=== PATIENT | male | born 1940 | race Caucasian/White ===

== ENCOUNTER 2017-01-01 10:47 | Observation (INO) | payer MEDICARE, OTHER ==
[~2017-01-01] VITALS: Ht 165.1 cm; Wt 70.0 kg
[2017-01-01] VITALS (9 sets, daily range): BP systolic 111–153; BP diastolic 56–70; PULSE 42–77; RESP 16–20; TEMP 97.4–98.8; O2SAT 95–100
[~2017-01-01 10:47] MED LIST: 1-ME1LIQ PO; ASPI81 PO; CART180C4 PO; CILO50TA PO; CLIN150 PO; CLOP75 PO; CLOP75TA PO; CYCL-36 PO; EZET10 PO; FOSI40TA PO; IBUP-232 PO; LANTUS2P SC; LOVA40TA PO; METO25 PO; NITR0.4S SL; OXYC1SOL5 PO; PROT40TA PO; SIMV20 PO; TOPR25TA2 PO; TRIX0.07 TOP; TYLE500T PO; Z.0.WALKERFRONT
--- NOTE | 2017-01-01 11:07 | PD ---
HPI Chief Complaint: intermittent chest pain Time Seen by Provider: 11:03 Travel History International Travel<30 days: No Contact w/Intl Traveler<30days: No Traveled to known affect area: No History of Present Illness HPI 76-year-old male with history of CAD status post CABG, presents to the ER today sent in by primary care physician because patient had stated to them that he had taken 20 nitroglycerin yesterday. However, on further questioning, patient states he has been having intermittent chest pains which can get up to a 5 out of 10 for which she has been taking nitroglycerin intermittently. Yesterday, he had taken a total of 8 nitroglycerin over the course of the day for the chest pains. He states that he took 2 this morning and he is currently not having chest pains. Chest pains worsen with exertion. He denies any shortness of breath or any other symptoms. 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, celiac artery disease, ) High Cholesterol: No Chest Pain: Yes Congestive Heart Failure: Yes Cerebrovascular Accident: Yes Coronary Artery Disease: Yes Endocrine: No Glaucoma: No Genitourinary: Yes (chronic kidney disease) Hypertension: Yes Immune Disorder: No Kidney Stones: No Musculoskeletal: No Neurologic: No Psychiatric: No Reproductive: No Respiratory: No Myocardial Infarction: Yes Renal Failure: No Past Surgical History Abdominal Surgery: No AICD: No Cardiac Surgery: Yes Coronary Stent: Yes Ear Surgery: No Endocrine Surgery: No Eye Surgery: No Genitourinary Surgery: No Gynecologic Surgery: No Neurologic Surgery: Yes Oral Surgery: No Pacemaker: No Thoracic Surgery: No Other Surgery: Yes Social History Alcohol Use: Yes Tobacco Use: No Substance Use: No Allergies-Medications (Allergen,Severity, Reaction): Coded Allergies: HMG-CoA Reductase Inhibitors (Verified Allergy, Severe, muscle spasms, ) Reported Meds & Prescriptions Reported Meds & Active Scripts Active Walker Front Wheel (Walkerfront) Device 1 Unit Cleocin (Clindamycin HCl) 150 Mg Cap 3 Tab PO Q6 10 Days Capsaicin 0.075 % Cre 0.075 % TOP BID 14 Days Acetaminophen Extra Stren (Acetaminophen) 500 Mg Tab 1,000 Mg PO BID 10 Days Oxycodone/Acetaminophen 5 mg/325 mg 1 Tab Tab 1 Tab PO Q6H PRN 3 Days Flexeril (Cyclobenzaprine HCl) 10 Mg Tab 5 Mg PO TID Motrin (Ibuprofen) 600 Mg Tab 600 Mg PO Q8HR GIVE WITH FOOD Reported Aspirin 81 Mg Tab 81 Mg PO DAILY Plavix (Clopidogrel Bisulfate) 75 Mg Tab 75 Mg PO DAILY Fosinopril Sodium 40 Mg Tab 40 Mg PO DAILY Cartia XT 180 mg (DILTIAZEM XT 180 mg (Cartia)) 180 Mg/24 Hr Cap 360 Mg PO DAILY Toprol Xl (Metoprolol Succinate) 25 Mg Tabcr 25 Mg PO BID Nitrostat (Nitroglycerin) 0.4 Mg Subl 0.4 Mg SL PRN 1 TAB SL EVERY 5 MINS X 3 PRN CHEST PAIN Zocor (Simvastatin) 20 Mg Tab 40 Mg PO DAILY Lantus (Insulin Glargine) 100 Units/Ml Inj 1 Unit SC HS Cilostazol 50 Mg Tab 50 Mg PO BIDAC Clopidogrel (Clopidogrel Bisulfate) 75 Mg Tab 75 Mg PO DAILY Fosinopril Sodium 40 Mg Tab 40 Mg PO DAILY Zetia (Ezetimibe) 10 Mg Tab 10 Mg PO DAILY Lovastatin 40 Mg Tab 80 Mg PO DAILY Amlodipine Besylate 10 mg (Amlodipine Besylate) 10 Mg Tab 1 Tab PO DAILY Metoprolol Tartrate 25 mg (Metoprolol Tartrate) 25 Mg Tab 25 Mg PO BID Protonix (Pantoprazole Sodium) 40 Mg Tab 40 Mg PO DAILY Cartia XT 180 mg (DILTIAZEM XT 180 mg (Cartia)) 180 Mg/24 Hr Cap 180 Mg PO BID Review of Systems Except as stated in HPI: all other systems reviewed are Neg Physical Exam Narrative GENERAL: Elderly male patient who is well-developed, awake, alert, oriented 3. Currently not in acute distress. SKIN: Focused skin assessment warm/dry. HEAD: Atraumatic. Normocephalic. EYES: Pupils equal and round. No scleral icterus. No injection or drainage. ENT: No nasal bleeding or discharge. Mucous membranes pink and moist. NECK: Trachea midline. No JVD. CARDIOVASCULAR: Regular rate and rhythm. No murmur appreciated. Pulses are present and equal bilaterally. RESPIRATORY: No accessory muscle use. Clear to auscultation. Breath sounds equal bilaterally. GASTROINTESTINAL: Abdomen soft, non-tender, nondistended. Hepatic and splenic margins not palpable. MUSCULOSKELETAL: No obvious deformities. No clubbing. No cyanosis. No edema. NEUROLOGICAL: Awake and alert. No obvious cranial nerve deficits. Motor grossly within normal limits. Normal speech. PSYCHIATRIC: Appropriate mood and affect; insight and judgment normal. Data Data Last Documented VS Vital Signs Date Time Temp Pulse Resp B/P Pulse Ox O2 Delivery O2 Flow Rate FiO2 01/01/17 11:07 46 20 98 Room Air 01/01/17 11:07 97.8 01/01/17 10:56 153/70 Orders Electrocardiogram (01/01/17 11:03) Ckmb (Isoenzyme) Profile (01/01/17 11:03) Complete Blood Count With Diff (01/01/17 11:03) Comprehensive Metabolic Panel (01/01/17 11:03) Magnesium (Mg) (01/01/17 11:03) Prothrombin Time / Inr (Pt) (01/01/17 11:03) Act Partial Throm Time (Ptt) (01/01/17 11:03) Troponin I (01/01/17 11:03) Chest, Single Ap (01/01/17 11:03) Ecg Monitoring (01/01/17 11:03) Bilateral Bp Monitoring (01/01/17 11:03) Iv Access Insert/Monitor (01/01/17 11:03) Oximetry (01/01/17 11:03) Oxygen Administration (01/01/17 11:03) Aspirin (Aspirin) (01/01/17 11:15) Sodium Chloride 0.9% Flush (Ns Flush) (01/01/17 11:15) Admit Order (Ed Use Only) (01/01/17 12:17) Labs Laboratory Tests Test 01/01/17 11:10 White Blood Count 10.7 TH/MM3 Red Blood Count 4.22 MIL/MM3 Hemoglobin 13.3 GM/DL Hematocrit 39.2 % Mean Corpuscular Volume 93.0 FL Mean Corpuscular Hemoglobin 31.6 PG Mean Corpuscular Hemoglobin 33.9 % Concent Red Cell Distribution Width 15.2 % Platelet Count 200 TH/MM3 Mean Platelet Volume 9.1 FL Neutrophils (%) (Auto) 55.1 % Lymphocytes (%) (Auto) 19.2 % Monocytes (%) (Auto) 7.8 % Eosinophils (%) (Auto) 17.3 % Basophils (%) (Auto) 0.6 % Neutrophils # (Auto) 5.9 TH/MM3 Lymphocytes # (Auto) 2.1 TH/MM3 Monocytes # (Auto) 0.8 TH/MM3 Eosinophils # (Auto) 1.8 TH/MM3 Basophils # (Auto) 0.1 TH/MM3 CBC Comment AUTO DIFF Differential Total Cells 100 Counted Neutrophils % (Manual) 42 % Band Neutrophils % 4 % Lymphocytes % 21 % Monocytes % 5 % Eosinophils % 26 % Neutrophils # (Manual) 5.1 TH/MM3 Myelocytes 2 % Differential Comment FINAL DIFF MANUAL Platelet Estimate NORMAL Platelet Morphology Comment ENLARGED Prothrombin Time 10.4 SEC Prothromb Time International 0.9 RATIO Ratio Activated Partial 23.6 SEC Thromboplast Time Sodium Level 143 MEQ/L Potassium Level 4.9 MEQ/L Chloride Level 114 MEQ/L Carbon Dioxide Level 22.4 MEQ/L Anion Gap 7 MEQ/L Blood Urea Nitrogen 21 MG/DL Creatinine 1.59 MG/DL Estimat Glomerular Filtration 42 ML/MIN Rate Random Glucose 115 MG/DL Calcium Level 9.0 MG/DL Magnesium Level 2.2 MG/DL Total Bilirubin 0.5 MG/DL Aspartate Amino Transf 8 U/L (AST/SGOT) Alanine Aminotransferase 17 U/L (ALT/SGPT) Alkaline Phosphatase 92 U/L Total Creatine Kinase 63 U/L Troponin I LESS THAN 0.02 NG/ML Total Protein 7.4 GM/DL Albumin 4.2 GM/DL MDM Medical Decision Making Medical Screen Exam Complete: Yes Emergency Medical Condition: Yes Medical Record Reviewed: Yes Interpretation(s) EKG shows sinus bradycardia rate of 50 bpm with no signs of acute ST-T changes. Laboratory Tests Test 01/01/17 11:10 Red Blood Count 4.22 MIL/MM3 (4.50-5.90) Eosinophils (%) (Auto) 17.3 % (0.0-4.0) Eosinophils # (Auto) 1.8 TH/MM3 (0-0.4) Activated Partial 23.6 SEC Thromboplast Time (24.3-30.1) Chloride Level 114 MEQ/L (98-107) Blood Urea Nitrogen 21 MG/DL (7-18) Creatinine 1.59 MG/DL (0.60-1.30) Estimat Glomerular Filtration 42 ML/MIN (>89) Rate Random Glucose 115 MG/DL (74-106) Aspartate Amino Transf 8 U/L (15-37) (AST/SGOT) Troponin I LESS THAN 0.02 NG/ML (0.02-0.05) Last 24 hours Impressions Chest X-Ray 01/01/17 1103 Signed Impressions: Service Date/Time: Sunday, January 01, 2017 11:00 - CONCLUSION: No acute disease. Efraín Metz MD Differential Diagnosis Intermittent chest pains worsening in the past few weeksunstable angina versus dysrhythmias versus ACS Narrative Course Patient was given aspirin in the ER. He is not having active chest pains now. EKG did not show any significant changes but does show some bradycardia. Cardiac enzymes are negative. At this point, considering the recent worsening and chest pain episodes, my plan would be to admit the patient for worsening chest pain, possible unstable angina. Case is discussed with PA for Dr. Bustillo for admission. Diagnosis Primary Impression: Chest pain Admitting Information Admitting Physician Requests: Admit Alba Davis MD Jan 01, 2017 11:07
[2017-01-01] MEDS ORDERED: ASPIRIN 325 MG TAB PO ONE (11:15)
[2017-01-01 11:19] LABS: AUTOMATED NEUTROPHIL # 5.9 TH/MM3 (1.8-7.7); BASOPHIL # 0.1 TH/MM3 (0-0.2); BASOPHIL % 0.6 % (0.0-2.0); EOSINOPHIL # 1.8 TH/MM3 (0-0.4); EOSINOPHIL % 17.3 % (0.0-4.0); HEMATOCRIT 39.2 % (39.0-51.0); LYMPH % 19.2 % (9.0-44.0); LYMPHOCYTE # 2.1 TH/MM3 (1.0-4.8); MEAN CORPUSCULAR HEMOGLOBIN 31.6 PG (27.0-34.0); MEAN CORPUSCULAR HGB CONC 33.9 % (32.0-36.0); MONO % 7.8 % (0.0-8.0); NEUT % 55.1 % (16.0-70.0); PLATELET COUNT 200 TH/MM3 (150-450); RED BLOOD COUNT 4.22 MIL/MM3 (4.50-5.90); RED CELL DISTRIBUTION WIDTH 15.2 % (11.6-17.2); WHITE BLOOD COUNT 10.7 TH/MM3 (4.0-11.0)
[2017-01-01 11:20] LABS: HEMO FLAGS AUTO DIFF
--- NOTE | 2017-01-01 11:22 | RADRPT ---
EXAM DATE/TIME: 01/01/2017 11:00 [facility] COMPARISON: No previous studies available for comparison. INDICATIONS : Chest pain. MEDICAL HISTORY : None. SURGICAL HISTORY : None. ENCOUNTER: Initial ACUITY: 1 day PAIN SCORE: Non-responsive. LOCATION: Bilateral chest FINDINGS: A single view of the chest demonstrates the lungs to be symmetrically aerated without evidence of mas s, infiltrate or effusion. The cardiomediastinal contours are unremarkable. Osseous structures are intact. CONCLUSION: No acute disease. Efraín Metz MD on January 01, 2017 at 11:21 Board Certified Radiologist. This report was verified electronically.
[2017-01-01 11:28] LABS: APTT (PATIENT) 23.6 SEC (24.3-30.1); INTERNATIONAL NORMALIZED RATIO 0.9 RATIO; PROTHROMBIN TIME - PATIENT 10.4 SEC (9.8-11.6)
[2017-01-01] MEDS: SODIUM CHLORIDE 0.9% FLUSH 10 ML FLUSH IVF PRN (11:30)
[2017-01-01 11:42] LABS: ALT (GPT) 17 U/L (12-78); ANION GAP 7 MEQ/L (5-15); AST (GOT) 8 U/L (15-37); BICARBONATE 22.4 MEQ/L (21.0-32.0); BLOOD UREA NITROGEN 21 MG/DL (7-18); CHLORIDE 114 MEQ/L (98-107); GLOMERULAR FILTRATION RATE 42 ML/MIN (>89); MAGNESIUM 2.2 MG/DL (1.5-2.5); POTASSIUM 4.9 MEQ/L (3.5-5.1); SODIUM (NA) 143 MEQ/L (136-145)
[2017-01-01 11:45] LABS: ALKALINE PHOSPHATASE 92 U/L (45-117); TOTAL BILIRUBIN ADULT 0.5 MG/DL (0.2-1.0)
[2017-01-01 11:48] LABS: CREATINE KINASE 63 U/L (39-308)
[2017-01-01 12:13] LABS: BANDS 4 % (0-6); EOSINOPHILS 26 % (0-4); MYELOCYTES 2 % (0-0); NEUTROPHIL # MANUAL DIFF 5.1 TH/MM3 (1.8-7.7); PLATELET ESTIMATE SMEAR NORMAL (NORMAL); PLATELET MORPHOLOGY ENLARGED (NORMAL); POLYS (SEG NEUTROPHILS) 42 % (16-70); SCAN/DIFF FINAL DIFF MANUAL; WBC DIFF SAMPLE 100
--- NOTE | 2017-01-01 12:21 | EKG ---
Date Performed: 01/01/2017 Time Performed: 11:01:30 PTAGE: 76 years EKG: SINUS BRADYCARDIA BORDERLINE ECG PREVIOUS TRACING : 02/07/2010 21.07 DOCTOR: Tristan Fry Interpretating Date/Time 01/01/2017 12:19:39
[2017-01-01] MEDS ORDERED: ONDANSETRON HCL 4 MG/2 ML VIAL IVP PRN (12:30)
[2017-01-01] MEDS ORDERED: DOCUSATE SODIUM 100 MG CAP PO PRN (12:30)
[2017-01-01] MEDS ORDERED: NITROGLYCERIN 0.4 MG SL 25 TABS/BTL SL PRN (12:30)
[2017-01-01] MEDS ORDERED: ACETAMINOPHEN 325 MG TAB PO PRN (12:30)
[2017-01-01] MEDS ORDERED: MORPHINE SULFATE 4 MG/ML INJ IV PRN (12:45)
[2017-01-01] MEDS ORDERED: ACETAMINOPHEN/HYDROcodone 325 MG/7.5 MG TAB PO PRN (12:45)
[2017-01-01] MEDS ORDERED: ACETAMINOPHEN/HYDROcodone 325 MG/5 MG TAB PO PRN (12:45)
[2017-01-01] MEDS ORDERED: NALOXONE HCL 0.4 MG/ML AMP IV PRN (12:45)
[2017-01-01] MEDS ORDERED: SODIUM CHLOR 0.9% 1000 ML INJ 1,000 ML IV SCH (13:00)
[2017-01-01] MEDS ORDERED: CLOP75TA PO (14:21)
[2017-01-01] MEDS ORDERED: ISOS20TA PO (14:21)
[2017-01-01] MEDS ORDERED: ATOR20TA15 PO (14:21)
[2017-01-01] MEDS ORDERED: ALLO100T PO (14:21)
[2017-01-01] MEDS ORDERED: AMLO10TA2 PO (14:21)
[2017-01-01] MEDS ORDERED: ZETI10TA5 PO (14:21)
[2017-01-01] MEDS ORDERED: MELO-1 PO (14:21)
[2017-01-01] MEDS ORDERED: FOSI40TA PO (14:21)
--- NOTE | 2017-01-01 16:43 | HHI.HP ---
[facility] Kevin Killian Admission Diagnosis intermittent chest pains/possible unstable angina Diagnoses: Chief Complaint: chest pains Travel History International Travel<30 Days: No Contact w/Intl Traveler <30 Da: No Traveled to Known Affected Are: No History of Present Illness 76-year-old male with history of CAD s/p cardiac stent, PAD, hypertension, hyperlipidemia, chronic back pain, gout, presents with over a month history of intermittent chest pains. The pain is located substernally and at the left anterior chest with radiation down the left arm, described as intermittent sharp 5/10 pains, lasts 15minutes, associated with some shortness of breath but no nausea/vomiting/diaphoresis. He sometimes will take Nitroglycerin which does help relieve the pain and he has been taking Nitro more frequently, up to 8 nitro tabs a day. He reports the pain mostly comes on at rest while watching television, but he does not get pain with exertion. He states he mowed the lawn last week and did not experience any chest pain. He does also report back pain located at the mid-thoracic region just below the shoulder blades. He states over a year ago he was bent over to hot die picker a TV stand, then upon standing upright, he experienced the pain. He also denies any epigastric pain or heartburn however takes multiple NSAIDs for his back pain, which includes ibuprofen 3-4x per day, Mobic, and additional aspirin. He does not notice the pain is worse after meals. He does have the pain when he lies flat. Denies any leg swelling or weight gain. He also reports chronic cough productive of clear- white phlegm which also exacerbates the chest pain. The patient does not have a local control clerk auditing but does follow with local PCP. He has no other medical complaints at this time. Review of Systems Except as stated in HPI: all other systems reviewed are Neg Past Family Social History Past Medical History CAD CHF Hypertension Peripheral arterial disease Chronic back pain with T9 fracture of posterior spinous process Gout Past Surgical History Cardiac catheterization with stent placement 2004 Right leg thrombolysis/angioplasty 2010 Spinal surgery Left eye pterygium excision 2004 Reported Medications Walker Front Wheel (Walkerfront) Device 1 Unit Cleocin (Clindamycin HCl) 150 Mg Cap 3 Tab PO Q6 10 Days Capsaicin 0.075 % Cre 0.075 % TOP BID 14 Days Acetaminophen Extra Stren (Acetaminophen) 500 Mg Tab 1,000 Mg PO BID 10 Days Oxycodone/Acetaminophen 5 mg/325 mg 1 Tab Tab 1 Tab PO Q6H PRN 3 Days Flexeril (Cyclobenzaprine HCl) 10 Mg Tab 5 Mg PO TID Motrin (Ibuprofen) 600 Mg Tab 600 Mg PO Q8HR GIVE WITH FOOD Reported Aspirin 81 Mg Tab 81 Mg PO DAILY Plavix (Clopidogrel Bisulfate) 75 Mg Tab 75 Mg PO DAILY Fosinopril Sodium 40 Mg Tab 40 Mg PO DAILY Cartia XT 180 mg (DILTIAZEM XT 180 mg (Cartia)) 180 Mg/24 Hr Cap 360 Mg PO DAILY Toprol Xl (Metoprolol Succinate) 25 Mg Tabcr 25 Mg PO BID Nitrostat (Nitroglycerin) 0.4 Mg Subl 0.4 Mg SL PRN 1 TAB SL EVERY 5 MINS X 3 PRN CHEST PAIN Zocor (Simvastatin) 20 Mg Tab 40 Mg PO DAILY Lantus (Insulin Glargine) 100 Units/Ml Inj 1 Unit SC HS Cilostazol 50 Mg Tab 50 Mg PO BIDAC Clopidogrel (Clopidogrel Bisulfate) 75 Mg Tab 75 Mg PO DAILY Fosinopril Sodium 40 Mg Tab 40 Mg PO DAILY Zetia (Ezetimibe) 10 Mg Tab 10 Mg PO DAILY Lovastatin 40 Mg Tab 80 Mg PO DAILY Amlodipine Besylate 10 mg (Amlodipine Besylate) 10 Mg Tab 1 Tab PO DAILY Metoprolol Tartrate 25 mg (Metoprolol Tartrate) 25 Mg Tab 25 Mg PO BID Protonix (Pantoprazole Sodium) 40 Mg Tab 40 Mg PO DAILY Cartia XT 180 mg (DILTIAZEM XT 180 mg (Cartia)) 180 Mg/24 Hr Cap 180 Mg PO BID Allergies: Coded Allergies: HMG-CoA Reductase Inhibitors (Verified Allergy, Severe, muscle spasms, ) Active Ordered Medications Current Medications Medications (Trade) Dose Ordered Sig/Sandra Route Start Time Stop Time Status Last Admin (NS Flush) 2 ml UNSCH PRN IVF 01/01/17 11:15 01/01/17 11:30 (Aspirin) 325 mg DAILY PO 01/02/17 09:00 (Nitrostat Sl) 0.4 mg Q5M PRN SL 01/01/17 12:30 (Zofran Inj) 4 mg Q6H PRN IVP 01/01/17 12:30 (Colace) 100 mg Q12H PRN PO 01/01/17 12:30 Acetaminophen 650 mg 650 mg Q6H PRN PO 01/01/17 12:30 (NS 1000 ml Inj) 1,000 ml @ 84 mls/hr [id number] IV 01/01/17 13:00 01/02/17 00:54 01/01/17 14:39 ([place] 5-325 Mg) 1 tab Q4H PRN PO 01/01/17 12:45 ([place] 7.5-325 Mg) 1 tab Q4H PRN PO 01/01/17 12:45 (Morphine Inj) 2 mg Q3H PRN IV 01/01/17 12:45 (Narcan Inj) 0.4 mg UNSCH PRN IV 01/01/17 12:45 Family History Father with heart disease, age 78 Mother with with pneumonia in her 80s Social History Prior tobacco use, quit 25 years ago Drinks beer and vodka occasionally Physical Exam Vital Signs Vital Signs Date Time Temp Pulse Resp B/P Pulse Ox O2 Delivery O2 Flow Rate FiO2 01/01/17 14:57 98.1 50 20 116/59 95 01/01/17 14:00 42 16 116/56 100 Room Air 01/01/17 13:54 99 Room Air 01/01/17 12:00 42 16 122/58 98 Room Air 01/01/17 11:07 46 20 98 Room Air 01/01/17 11:07 97.8 46 20 98 Room Air 01/01/17 10:56 97.8 46 20 153/70 98 01/01/17 10:49 97.4 47 16 136/62 98 Physical Exam GENERAL: Well-nourished, well-developed pleasant elderly male patient in [facility]. SKIN: Warm and dry. No rash. HEAD: Normocephalic. Atraumatic. EYES: Pupils equal and round. No scleral icterus. No injection or drainage. ENT: No nasal bleeding or discharge. Mucous membranes pink and moist. NECK: Supple. Trachea midline. CARDIOVASCULAR: Regular rate and rhythm. S1, S2 noted. No murmur appreciated. RESPIRATORY: No accessory muscle use. Clear to auscultation. Breath sounds equal bilaterally. GASTROINTESTINAL: Abdomen soft, non-tender, nondistended. Normoactive bowel sounds x4. MUSCULOSKELETAL: No obvious deformities. Extremities without clubbing, cyanosis , or edema. NEUROLOGICAL: Awake and alert. No obvious cranial nerve deficits. Motor grossly within normal limits. 5/5 muscle strength in bilateral upper and lower extremities. Normal speech. PSYCHIATRIC: Appropriate mood and affect; insight and judgment normal. Laboratory Laboratory Tests Test 01/01/17 11:10 White Blood Count 10.7 Red Blood Count 4.22 Hemoglobin 13.3 Hematocrit 39.2 Mean Corpuscular Volume 93.0 Mean Corpuscular Hemoglobin 31.6 Mean Corpuscular Hemoglobin 33.9 Concent Red Cell Distribution Width 15.2 Platelet Count 200 Mean Platelet Volume 9.1 Neutrophils (%) (Auto) 55.1 Lymphocytes (%) (Auto) 19.2 Monocytes (%) (Auto) 7.8 Eosinophils (%) (Auto) 17.3 Basophils (%) (Auto) 0.6 Neutrophils # (Auto) 5.9 Lymphocytes # (Auto) 2.1 Monocytes # (Auto) 0.8 Eosinophils # (Auto) 1.8 Basophils # (Auto) 0.1 CBC Comment AUTO DIFF Differential Total Cells 100 Counted Neutrophils % (Manual) 42 Band Neutrophils % 4 Lymphocytes % 21 Monocytes % 5 Eosinophils % 26 Neutrophils # (Manual) 5.1 Myelocytes 2 Differential Comment FINAL DIFF MANUAL Platelet Estimate NORMAL Platelet Morphology Comment ENLARGED Prothrombin Time 10.4 Prothromb Time International 0.9 Ratio Activated Partial 23.6 Thromboplast Time Sodium Level 143 Potassium Level 4.9 Chloride Level 114 Carbon Dioxide Level 22.4 Anion Gap 7 Blood Urea Nitrogen 21 Creatinine 1.59 Estimat Glomerular Filtration 42 Rate Random Glucose 115 Calcium Level 9.0 Magnesium Level 2.2 Total Bilirubin 0.5 Aspartate Amino Transf 8 (AST/SGOT) Alanine Aminotransferase 17 (ALT/SGPT) Alkaline Phosphatase 92 Total Creatine Kinase 63 Troponin I LESS THAN 0.02 Total Protein 7.4 Albumin 4.2 Result Diagram: 01/01/17 1110 01/01/17 1110 Imaging Last Impressions Chest X-Ray 01/01/17 1103 Signed Impressions: Service Date/Time: Sunday, January 01, 2017 11:00 - CONCLUSION: No acute disease. Efraín A. Isaías, MD Assessment and Plan Problem List: (1) Chest pain ICD Code: R07.9 Status: Acute (2) Coronary artery disease ICD Code: I25.10 Status: Acute (3) Hypertension ICD Code: I10 Status: Acute (4) Hyperlipidemia ICD Code: E78.5 Status: Acute Assessment and Plan 76-year-old male with history of CAD s/p cardiac stent, hypertension, hyperlipidemia, chronic back pain, presents with over a month history of intermittent chest pains. Chest Pain, Atypical: suspect GI related, patient taking multiple NSAIDs for chronic back pain, including ibuprofen 3-4x/day, Mobic, and extra doses of aspirin. However with hx of CAD s/p stent, need to rule out ACS. -CXR images reviewed, unremarkable -Initial troponin negative, will continue to rule out ACS with serial cardiac enzymes and EKG -S/p aspirin in the ED, will continue -Continue patient's plavix, statin, Imdur -Continue IV morphine prn, O2 prn, avoid nitro since patient already on Imdur -unable to start BB secondary to bradycardia -start PPI -check D-Dimer -check lipid panel and HgbA1c -consult cardiology for further evaluation Acute on Chronic Back Pain: Upon review of EMR, T-spine CT 12/24/15 showed linear nondisplaced fracture involving posterior spinous process of T9 with callus formation, likely subacute to chronic fracture. -instructed patient to stop taking ibuprofen and mobic -tramadol prn pain -IV morphine prn breakthrough pain -consult PT Hypertension: chronic, BP borderline hypotensive -hold patient's fosinopril with CYNDY -continue patient's Norvasc -monitor BP and adjust antihypertensives as needed Hyperlipidemia: chronic -continue patient's statin CYNDY: Cr 1.59, previously 0.86 in Jun 2015. Likely secondary to overuse of NSAIDs. -give IVF 1L NS -Repeat BMP in the am -avoid nephrotoxins Peripheral Arterial Disease: s/p thrombolysis/angioplasty in the past. -continue patient's plavix DVT Prophylaxis: teds/SCDs Written by Betzaida Terrazas, acting as scribe for Dr. Bustillo on 01/01/17 at 17:00. All or portions of this note were transcribed by scribe RICKI Ignacio. I , Dr. Ricci Bustillo personally performed the history, physical exam, and medical decision making; and confirmed the accuracy of the information in the transcribed note. Authenticated by Dr. Ricci Bustillo on 01/02/17 at 00:16. Discussed Condition With Patient, CDU RN, ER Betzaida Haddad PA-C Jan 01, 2017 16:43 Sylvia Bustillo DO Jan 02, 2017 00:16
[2017-01-01] MEDS ORDERED: PANTOPRAZOLE SOD 40 MG DELAYED RELEASE TAB PO ONE (17:00)
[2017-01-01] MEDS ORDERED: traMADol HCL 50 MG TAB PO PRN (17:45)
[2017-01-01 19:10] LABS: CREATINE KINASE 56 U/L (39-308)
[2017-01-01] MEDS: ATORVASTATIN 20 MG TAB PO SCH (20:46)
[2017-01-01] MEDS: PANTOPRAZOLE SOD 40 MG DELAYED RELEASE TAB PO SCH (20:46)
[2017-01-02] VITALS (7 sets, daily range): BP systolic 123–133; BP diastolic 61–66; PULSE 65–99; RESP 16–20; TEMP 97.2–98.7; O2SAT 95–99
[2017-01-02 00:01] LABS: CREATINE KINASE 47 U/L (39-308)
--- NOTE | 2017-01-02 05:38 | MB ---
cc: MARIBEL FARFAN DO DATE OF CONSULTATION January 01, 2017 REASON FOR CONSULTATION Intermittent chest pain. HISTORY OF PRESENT ILLNESS Charli Brian is a pleasant 76-year-old male who presents to [facility] on January 01, 2017, due to chest pain. The patient is a poor historian, has minimal insight into his previous history, but it appears that he has had mild chest pains which are sharp in nature. They last about 10-15 minutes. He denies shortness of breath, nausea, vomiting or diaphoresis with this. Sometimes he takes nitroglycerin which does help to relieve the pain. The pain appears to come on when he is watching TV at night or when he lays down to sleep. He does not get the pain with any exertion. He states that he mows the lawn and does not experience chest pain. When asked about chest pain, he points to his left lower chest around the epigastric area. He also has back pain which is located in the mid-thoracic region which is chronic in nature after picking up a TV stand about a year ago. Because of his back pain he takes multiple NSAIDs including ibuprofen, Mobic and additional aspirin. PAST MEDICAL HISTORY 1. Coronary artery disease. 2. Congestive heart failure. 3. Hypertension. 4. Peripheral artery disease. 5. Chronic back pain with T9 fracture from posterior spinous process. 6. Gout. PAST SURGICAL HISTORY 1. Cardiac catheterization (December 11, 2004): Left main 40%, LAD 20-30%, diagonal 60% in the proximal portion, circumflex is a small nondominant vessel, obtuse marginal which appears to be a trifurcation and has a 50-60% lesion in a small vessel. RCA had a 90% stenosis at the crux. RCA was intervened on with a Cypher (2.5 x 13) stent. 2. Right leg thrombolysis angioplasty (2010). 3. Spinal surgery. 4. Left eye pterygium excision (2004). ALLERGIES STATINS. MEDICATIONS 1. Lisinopril 40 mg daily. 2. Allopurinol 100 mg daily. 3. Zetia 10 mg daily. 4. Norvasc 10 mg daily. 5. Lipitor 20 mg every night. 6. Imdur 60 mg daily. 7. Meloxicam 15 mg daily. 8. Plavix 75 mg daily. 9. Aspirin 81 mg daily. 10. Toprol 25 mg b.i.d. FAMILY HISTORY Father had heart disease and at the age of 78. Mother had pneumonia and in the 80s. SOCIAL HISTORY Previously smoked, quitting a number years ago. Drinks beer and Vodka occasionally. REVIEW OF SYSTEMS Fourteen-systems were reviewed. Pertinent positives and negatives above, otherwise negative. PHYSICAL EXAMINATION VITAL SIGNS: Temperature 97.8, heart rate 77, blood pressure 119/59, respirations 16, pulse ox 98% on room air. GENERAL: The patient appears well, in no acute distress, alert, awake and oriented x 3. Extraocular muscles intact. Mucous membranes moist. NECK: Supple. No JVD at 45 degrees. No carotid bruits heard bilaterally. Carotid upstroke is brisk in nature. HEART: Regular in rate and rhythm. Positive first and second heart sounds with no murmurs, gallops or rubs. PMI is nondisplaced. LUNGS: Clear to auscultation bilaterally. No wheezes, rales or rhonchi. ABDOMEN: Soft, non-tender, non-distended. No organomegaly noted. EXTREMITIES: No clubbing, cyanosis or edema. Femoral pulses intact bilaterally. NEUROLOGICALLY: No focal deficits. SKIN: Warm, dry and intact. OSTEOPATHIC EXAM: No kyphoscoliosis, lordosis or paraspinal tender points. LABORATORY FINDINGS Hemoglobin 13.3, hematocrit 39.2, platelets 200. Potassium 4.9, BUN 21, creatinine 1.59. Troponin negative x 2. ELECTROCARDIOGRAM (January 01, 2017, at 17:15): Sinus bradycardia at 58 beats per minute, no acute ST-T wave changes. No significant change from the January 01, 2017, at 11:01 a.m. IMPRESSIONS 1. Atypical chest pain. 2. Acute on chronic back pain. 3. Hypertension. 4. Hyperlipidemia. 5. Acute kidney injury versus chronic kidney disease. 6. History of peripheral artery disease. 7. Extensive NSAID use. RECOMMENDATIONS 1. Mr. Brian came into the emergency room due to intermittent chest pain which appears atypical in nature. He does have a history of coronary artery disease and peripheral artery disease, so I feel that he should undergo pharmacologic nuclear stress testing to rule out obstructive coronary artery disease. We will plan this in the morning and he will be n.p.o. after midnight. 2. He will continue on his aspirin, Plavix and Imdur. Toprol has been held secondary to bradycardia. 3. We will obtain a 2-D echo to look at his overall left ventricular function, cardiac structure and possible valvopathies. 4. Further recommendations will be made based on the hospital course. Thank you for allowing me to see Charli Brian. If there are any questions, please do not hesitate to call. Maribel Farfan DO VGP/SSB /11:16 PM /5:24 AM
[2017-01-02 07:12] LABS: AUTOMATED NEUTROPHIL # 4.2 TH/MM3 (1.8-7.7); BASOPHIL % 0.4 % (0.0-2.0); EOSINOPHIL # 1.1 TH/MM3 (0-0.4); EOSINOPHIL % 15.7 % (0.0-4.0); HEMATOCRIT 36.1 % (39.0-51.0); HEMO FLAGS DIFF FINAL; LYMPH % 15.1 % (9.0-44.0); LYMPHOCYTE # 1.1 TH/MM3 (1.0-4.8); MEAN CELL VOLUME 92.4 FL (80.0-100.0); MEAN CORPUSCULAR HEMOGLOBIN 31.6 PG (27.0-34.0); MEAN CORPUSCULAR HGB CONC 34.2 % (32.0-36.0); MONO % 8.6 % (0.0-8.0); NEUT % 60.2 % (16.0-70.0); PLATELET COUNT 145 TH/MM3 (150-450); RED BLOOD COUNT 3.91 MIL/MM3 (4.50-5.90); RED CELL DISTRIBUTION WIDTH 14.9 % (11.6-17.2)
[2017-01-02 07:33] LABS: BICARBONATE 21.9 MEQ/L (21.0-32.0); POTASSIUM 4.6 MEQ/L (3.5-5.1)
--- NOTE | 2017-01-02 08:59 | HHI.PR ---
Subjective Remarks Follow up for chest pain. The patient reports feeling better today, denies any further episodes of chest pain. Denies any shortness of breath. Denies any new medical complaints at this time. He verbalizes understanding to stop taking ibuprofen and mobic. Objective Vitals Vital Signs Date Time Temp Pulse Resp B/P Pulse Ox O2 Delivery O2 Flow Rate FiO2 01/02/17 05:21 18 01/02/17 04:42 98.7 67 16 133/61 95 01/02/17 03:40 77 01/01/17 23:46 98.8 65 18 111/58 98 01/01/17 20:32 97.8 77 16 119/59 98 01/01/17 18:40 54 01/01/17 14:57 98.1 50 20 116/59 95 01/01/17 14:00 42 16 116/56 100 Room Air 01/01/17 13:54 99 Room Air 01/01/17 12:00 42 16 122/58 98 Room Air 01/01/17 11:07 46 20 98 Room Air 01/01/17 11:07 97.8 46 20 98 Room Air 01/01/17 10:56 97.8 46 20 153/70 98 01/01/17 10:49 97.4 47 16 136/62 98 I/O 01/01/17 01/01/17 01/01/17 01/02/17 01/02/17 01/02/17 07:00 15:00 23:00 07:00 15:00 23:00 Output Total 700 ml Balance -700 ml Output Urine Total 700 ml # Voids 2 Result Diagram: 01/02/17 0635 01/02/17 0635 Imaging Last Impressions Chest X-Ray 01/01/17 1103 Signed Impressions: Service Date/Time: Sunday, January 01, 2017 11:00 - CONCLUSION: No acute disease. Efraín Metz MD Objective Remarks GENERAL: Well-nourished, well-developed pleasant elderly male patient in [facility]. SKIN: Warm and dry. No rash. HEENT: Normocephalic. Atraumatic. Pupils equal and round. Mucous membranes pink and moist. NECK: Supple. Trachea midline. CARDIOVASCULAR: Regular rate and rhythm. S1, S2 noted. No murmur appreciated. RESPIRATORY: No accessory muscle use. Clear to auscultation. Breath sounds equal bilaterally. GASTROINTESTINAL: Abdomen soft, non-tender, nondistended. Normoactive bowel sounds x4. MUSCULOSKELETAL: No obvious deformities. Extremities without clubbing, cyanosis , or edema. NEUROLOGICAL: Awake and alert. No obvious cranial nerve deficits. Motor grossly within normal limits. Normal speech. PSYCHIATRIC: Appropriate mood and affect; insight and judgment normal. Medications and IVs Current Medications Medications (Trade) Dose Ordered Sig/Sandra Route Start Time Stop Time Status Last Admin (NS Flush) 2 ml UNSCH PRN IVF 01/01/17 11:15 01/01/17 11:30 (Zofran Inj) 4 mg Q6H PRN IVP 01/01/17 12:30 (Colace) 100 mg Q12H PRN PO 01/01/17 12:30 (Tylenol) 650 mg Q6H PRN PO 01/01/17 12:30 (Morphine Inj) 2 mg Q3H PRN IV 01/01/17 12:45 (Narcan Inj) 0.4 mg UNSCH PRN IV 01/01/17 12:45 (Protonix) 40 mg BID PO 01/01/17 21:00 01/01/17 20:46 (Ultram) 50 mg Q4H PRN PO 01/01/17 17:45 01/02/17 03:58 (Norvasc) 10 mg DAILY PO 01/02/17 09:00 (Lipitor) 20 mg HS PO 01/01/17 21:00 01/01/17 20:46 (Plavix) 75 mg DAILY PO 01/02/17 09:00 (Zetia) 10 mg DAILY PO 01/02/17 09:00 (Ismo) 60 mg DAILY PO 01/02/17 09:00 (Aspirin Chew) 81 mg DAILY CHEW 01/02/17 09:00 Urinary Catheter: No Vascular Central Line Catheter: No A/P Problem List: (1) Chest pain ICD Code: R07.9 Status: Acute (2) Coronary artery disease ICD Code: I25.10 Status: Acute (3) Hypertension ICD Code: I10 Status: Acute (4) Hyperlipidemia ICD Code: E78.5 Status: Acute Assessment and Plan 76-year-old male with history of CAD s/p cardiac stent, hypertension, hyperlipidemia, chronic back pain, presents with over a month history of intermittent chest pains. Chest Pain, Atypical: hx of CAD s/p stent, need to rule out ACS. -CXR images reviewed, unremarkable -ACS ruled out with negative serial cardiac enzymes x3 and EKG without acute ischemic changes -Continue aspirin, plavix, statin, Imdur, IV morphine prn, O2 prn, avoid nitro since patient already on Imdur -unable to start BB secondary to bradycardia -D-Dimer minimally elevated although Wells Score 0, low probability -lipid panel wnl and HgbA1c pending -consulted cardiology for further evaluation -nuclear stress test 01/02 showed moderate size moderate severity reversible apical perfusion abnormality -echocardiogram ordered -keep NPO for likely cardiac catheterization Suspected Gastritis with Excessive NSAID Use: patient taking multiple NSAIDs for chronic back pain, including ibuprofen 3-4x/day, Mobic, and extra doses of aspirin. -started protonix bid -symptoms improving Acute on Chronic Back Pain: Upon review of EMR, T-spine CT 12/24/15 showed linear nondisplaced fracture involving posterior spinous process of T9 with callus formation, likely subacute to chronic fracture. -instructed patient to stop taking excessive NSAIDs including ibuprofen and mobic -tylenol or tramadol prn pain -IV morphine prn breakthrough pain -consult PT Hypertension: chronic, BP borderline hypotensive -hold patient's fosinopril with CYNDY -continue patient's Norvasc -monitor BP and adjust antihypertensives as needed Hyperlipidemia: chronic -continue patient's statin CYNDY: Cr 1.59, previously 0.86 in Jun 2015. Likely secondary to overuse of NSAIDs. -given IVF 1L NS -Repeat BMP today shows improvement, Cr 1.35 -avoid nephrotoxins -will give another 1L with likely upcoming cardiac catheterization -repeat BMP in am Peripheral Arterial Disease: s/p thrombolysis/angioplasty in the past. -continue patient's plavix DVT Prophylaxis: teds/SCDs Written by Betzaida Terrazas, acting as scribe for Dr. Turk on 01/02/17 at 12: 55pm Discharge Planning Nuclear stress test abnormal, patient will likely need cardiac catheterization. Attending Statement This note was transcribed by scribe above. I, Dr. Mary Turk personally performed the history, physical exam, and medical decision making; and confirmed the accuracy of the information in the transcribed note. Authenticated by Dr. Mary Turk on 01/02/17 at 20:19. Betzaida Terrazas PA-C Jan 02, 2017 08:59 Mary Turk MD Jan 02, 2017 20:19
[2017-01-02] MEDS ORDERED: ASPIRIN 325 MG TAB PO SCH (09:00)
[2017-01-02] MEDS: ISOSORBIDE MONONITRATE 20 MG TAB PO SCH (10:19)
[2017-01-02] MEDS: ASPIRIN 81 MG CHEW TAB CHEW SCH (10:19)
[2017-01-02] MEDS: EZETIMIBE 10 MG TAB PO SCH (10:20)
[2017-01-02] MEDS: CLOPIDOGREL 75 MG TAB PO SCH (10:20)
[2017-01-02] MEDS: PANTOPRAZOLE SOD 40 MG DELAYED RELEASE TAB PO SCH ×2 (10:24→20:42)
[2017-01-02] MEDS ORDERED: REGADENOSON INJ 0.4 MG/5 ML SYR ONE (11:23)
[2017-01-02] MEDS ORDERED: AMINOPHYLLINE INJ 250 MG/10 ML VIAL ONE (12:13)
--- NOTE | 2017-01-02 13:04 | PD.CARD.PN ---
Subjective Subjective Remarks No chest pain, no shortness of breath Objective Medications Current Medications Medications (Trade) Dose Ordered Sig/Sandra Route Start Time Stop Time Status Last Admin (NS Flush) 2 ml UNSCH PRN IVF 01/01/17 11:15 01/01/17 11:30 (Zofran Inj) 4 mg Q6H PRN IVP 01/01/17 12:30 (Colace) 100 mg Q12H PRN PO 01/01/17 12:30 (Tylenol) 650 mg Q6H PRN PO 01/01/17 12:30 (Morphine Inj) 2 mg Q3H PRN IV 01/01/17 12:45 (Narcan Inj) 0.4 mg UNSCH PRN IV 01/01/17 12:45 (Protonix) 40 mg BID PO 01/01/17 21:00 01/02/17 10:24 (Ultram) 50 mg Q4H PRN PO 01/01/17 17:45 01/02/17 03:58 (Norvasc) 10 mg DAILY PO 01/02/17 09:00 01/02/17 10:20 (Lipitor) 20 mg HS PO 01/01/17 21:00 01/01/17 20:46 (Plavix) 75 mg DAILY PO 01/02/17 09:00 01/02/17 10:20 (Zetia) 10 mg DAILY PO 01/02/17 09:00 01/02/17 10:20 (Ismo) 60 mg DAILY PO 01/02/17 09:00 01/02/17 10:19 (Aspirin Chew) 81 mg DAILY CHEW 01/02/17 09:00 01/02/17 10:19 Vital Signs / I&O Vital Signs Date Time Temp Pulse Resp B/P Pulse Ox O2 Delivery O2 Flow Rate FiO2 01/02/17 08:08 97.8 86 20 132/62 96 01/02/17 05:21 18 01/02/17 04:42 98.7 67 16 133/61 95 01/02/17 03:40 77 01/01/17 23:46 98.8 65 18 111/58 98 01/01/17 20:32 97.8 77 16 119/59 98 01/01/17 18:40 54 01/01/17 14:57 98.1 50 20 116/59 95 01/01/17 14:00 42 16 116/56 100 Room Air 01/01/17 13:54 99 Room Air I/O 01/01/17 01/01/17 01/01/17 01/02/17 01/02/17 01/02/17 07:00 15:00 23:00 07:00 15:00 23:00 Output Total 700 ml Balance -700 ml Output Urine Total 700 ml # Voids 2 Physical Exam GENERAL: NAD SKIN: Warm and dry. HEAD: Atraumatic. Normocephalic. EYES: Pupils equal and round. No scleral icterus. No injection or drainage. ENT: No nasal bleeding or discharge. Mucous membranes pink and moist. NECK: Trachea midline. No JVD. CARDIOVASCULAR: Regular rate and rhythm. RESPIRATORY: No accessory muscle use. Decreased breath sounds bilaterally GASTROINTESTINAL: Abdomen soft, non-tender, nondistended. Hepatic and splenic margins not palpable. MUSCULOSKELETAL: Extremities without clubbing, cyanosis, or edema. No obvious deformities. NEUROLOGICAL: Awake and alert. No obvious cranial nerve deficits. Motor grossly within normal limits. Five out of 5 muscle strength in the arms and legs. Normal speech. PSYCHIATRIC: Appropriate mood and affect; insight and judgment normal. Laboratory Laboratory Tests Test 01/01/17 01/01/17 01/02/17 18:04 22:48 06:35 D-Dimer Quantitative (PE/DVT) 0.71 MG/L FEU Total Creatine Kinase 56 U/L 47 U/L Troponin I LESS THAN 0.02 LESS THAN 0.02 NG/ML NG/ML White Blood Count 7.0 TH/MM3 Red Blood Count 3.91 MIL/MM3 Hemoglobin 12.3 GM/DL Hematocrit 36.1 % Mean Corpuscular Volume 92.4 FL Mean Corpuscular Hemoglobin 31.6 PG Mean Corpuscular Hemoglobin 34.2 % Concent Red Cell Distribution Width 14.9 % Platelet Count 145 TH/MM3 Mean Platelet Volume 9.0 FL Neutrophils (%) (Auto) 60.2 % Lymphocytes (%) (Auto) 15.1 % Monocytes (%) (Auto) 8.6 % Eosinophils (%) (Auto) 15.7 % Basophils (%) (Auto) 0.4 % Neutrophils # (Auto) 4.2 TH/MM3 Lymphocytes # (Auto) 1.1 TH/MM3 Monocytes # (Auto) 0.6 TH/MM3 Eosinophils # (Auto) 1.1 TH/MM3 Basophils # (Auto) 0.0 TH/MM3 CBC Comment DIFF FINAL Differential Comment Sodium Level 143 MEQ/L Potassium Level 4.6 MEQ/L Chloride Level 115 MEQ/L Carbon Dioxide Level 21.9 MEQ/L Anion Gap 6 MEQ/L Blood Urea Nitrogen 19 MG/DL Creatinine 1.35 MG/DL Estimat Glomerular Filtration 51 ML/MIN Rate Random Glucose 101 MG/DL Calcium Level 8.5 MG/DL Triglycerides Level 100 MG/DL Cholesterol Level 100 MG/DL LDL Cholesterol 29 MG/DL HDL Cholesterol 51.0 MG/DL Cholesterol/HDL Ratio 1.96 RATIO Assessment and Plan Problem List: (1) Chest pain (2) Hyperlipidemia (3) Hypertension (4) Coronary artery disease (5) Peripheral vascular disease Assessment and Plan 1) For stress test today, depending on the results may need coronary visualization 2) Con't with current medications Arnulfo Dean DO Jan 02, 2017 13:04
--- NOTE | 2017-01-02 13:20 | RADRPT ---
EXAM DATE/TIME: 01/02/2017 11:03 [place] COMPARISON: No previous studies available for comparison. INDICATIONS : Left chest pain. Coronary artery disease. DOSE: 27.3 mCi Tc99m Myoview at stress. 8.7 mCi Tc99m Myoview at rest. 0.4 mg Lexiscan STRESS SYMPTOMS: Chest pain and numbness. MEDICATIONS: 1.) 100 mg Aminophylline IV EJECTION FRACTION: > 70% MEDICAL HISTORY : Myocardial infarction. Hypertension. Congestive heart failure. SURGICAL HISTORY : CABG Coronary artery stent. ENCOUNTER: Initial ACUITY: 1 day PAIN SCALE: 5/10 LOCATION: Left chest TECHNIQUE: The patient underwent pharmacologic stress with infusion of prescribed dose. Continuous ECG tracing was monitored during stress. Gated SPECT imaging was performed after stress and conventional SPECT i maging was performed at rest. The examination was performed on a SPECT/CT scanner, both attenuation and non-corrected datasets were reviewed. FINDINGS: DISTRIBUTION: The maximum perfused segment at stress is in the posterobasal wall. PERFUSION STUDY: There is moderately diminished relative perfusion to the cardiac apex with at least mild-moderate red istribution. GATED STUDY: There is intact wall motion and thickening without hypokinetic or dyskinetic segments. CONCLUSION: Moderate size moderate severity reversible apical perfusion abnormality. RISK CATEGORY: Intermediate (1-3% Annual Mortality Rate) Benjamin Martinez MD on January 02, 2017 at 13:16 Board Certified Radiologist. This report was verified electronically.
[2017-01-02] MEDS ORDERED: SODIUM CHLOR 0.9% 1000 ML INJ 1,000 ML IV SCH (14:45)
[2017-01-02] MEDS ORDERED: HEPARIN-NS/PF INJ 500 ML ONE (15:51)
[2017-01-02] MEDS ORDERED: MIDAZOLAM HCL 2 MG/2 ML VIAL ONE (16:01)
[2017-01-02] MEDS ORDERED: HEPARIN SODIUM - IV 10,000 UNITS/10 ML VIAL ONE (16:11)
[2017-01-02] MEDS ORDERED: IOHEXOL 350 MG/ML 100 ML BTL (for Cath Lab) OTHER ONE (16:30)
[2017-01-02 16:38] LABS: HEMOGLOBIN A1a 1.2 %; HEMOGLOBIN A1b 1.5 %; HEMOGLOBIN LA1C 1.9 %; HEMOGLOBIN P3 4.1 %
[2017-01-02] MEDS ORDERED: CLOPIDOGREL 300 MG TAB ONE (16:41)
--- NOTE | 2017-01-02 17:41 | EC ---
Study Study Date:01/02/2017 STUDY CONCLUSIONS SUMMARY - Procedure narrative: Transthoracic echocardiography. Image quality was poor. Scanning was performed from the parasternal, apical, and subcostal acoustic windows. - Left ventricle: The cavity size was normal. Wall thickness was normal. Systolic function was probably normal. The estimated ejection fraction was in the range of 55% to 60%. Wall motion was normal; there were no regional wall motion abnormalities. - Aortic valve: Valve area: 2.29cm^2 (Vmax). - Tricuspid valve: Mild regurgitation. If LV function is below 40, please consider prescribing an ACEI or ARB or document rationale for non-use. PROCEDURE DATA STUDY STATUS: Elective. Procedure: Transthoracic echocardiography. Image quality was poor. Scanning was performed from the parasternal, apical, and subcostal acoustic windows. Study completion: The patient tolerated the procedure well. Transthoracic echocardiography. M-mode, complete 2D, complete spectral Doppler, and color Doppler. Height: Height: 65in. Weight: Weight: 153.7lb. Body mass index: BMI: 25.6kg/m^2. Body surface area: BSA: 1.77m^2. Patient status: Inpatient. CARDIAC ANATOMY LEFT VENTRICLE: Not well visualized. The cavity size was normal. Wall thickness was normal. Systolic function was probably normal. The estimated ejection fraction was in the range of 55% to 60%. Wall motion was normal; there were no regional wall motion abnormalities. AORTIC VALVE: Trileaflet; normal thickness leaflets. Doppler: Transvalvular velocity was within the normal range. There was no stenosis. No regurgitation. Valve area: 2.29cm^2 (Vmax). Indexed valve area: 1.29cm^2/m^2 (Vmax). Peak gradient: 14mm Hg (S). AORTA: Aortic root: The aortic root was normal in size. MITRAL VALVE: Structurally normal valve. Doppler: Transvalvular velocity was within the normal range. There was no evidence for stenosis. No regurgitation. LEFT ATRIUM: The atrium was normal in size. RIGHT VENTRICLE: The cavity size was normal. Wall thickness was normal. PULMONIC VALVE: Doppler: Transvalvular velocity was within the normal range. There was no evidence for stenosis. No regurgitation. TRICUSPID VALVE: Structurally normal valve. Doppler: Transvalvular velocity was within the normal range. Mild regurgitation. PULMONARY ARTERY: The main pulmonary artery was normal-sized. Systolic pressure was within the normal range. RIGHT ATRIUM: The atrium was normal in size. PERICARDIUM: There was no pericardial effusion. SYSTEMIC VEINS: Inferior vena cava: The vessel was normal in size. Patient weight: 153.7lb _Ejection fraction:_ 65-75% _Fractional shortening:_ 32% up to 5Kg 5-11.5Kg 11.6-22.9Kg 23-45Kg 45-57Kg Aortic Root 7-13 <17 13-22 17-27 17-27 LA diam 6-13 <23 24-38 33-47 37-40 RVID 10-17 7-15 7-15 7-18 8-17 LVIDd 12-22 <32 24-38 33-47 37-40 LVPW 2-4 3-6 5-7 6-8 7-8 IVS 2-4 3-6 5-7 6-8 7-8 BASIC MEASUREMENTS ADULT NORMAL Left ventricle LV internal dimension, ED, chordal 46.6 mm 43-52 level, PLAX LV internal dimension, ES, chordal 33.4 mm 23-38 level, PLAX Fractional shortening, chordal level, *28 % >29 PLAX LV posterior wall thickness, ED 10.5 mm IVS/LVPW ratio, ED 1 <1.3 Ventricular septum Septal thickness, ED 10.5 mm Aortic valve Leaflet separation 16 mm 15-26 BASIC MEASUREMENTS ADULT NORMAL Aortic valve Leaflet separation 16 mm 15-26 Aorta Root diameter, ED 27 mm 20-37 Left atrium Anterior-posterior dimension, ES 39 mm 19-40 Anterior-posterior dimension index, ES *2.2 cm/m^2 <2.2 LA/aortic root ratio 1.44 DOPPLER MEASUREMENTS ADULT NORMAL Main pulmonary artery Pressure, S 10 mm Hg =30 Aortic valve Peak velocity, S 189 cm/s Peak gradient, S 14 mm Hg Valve area, Vmax 2.29 cm^2 Valve area index, Vmax 1.29 cm^2/m^2 Mitral valve Peak E-wave velocity 66.1 cm/s Peak A-wave velocity 80 cm/s Deceleration time *271 ms 150-230 Peak E/A ratio 0.8 Tricuspid valve Regurgitant peak velocity 147 cm/s Peak RV-RA gradient, S 9 mm Hg Maximal regurgitant velocity 147 cm/s Systemic veins Estimated CVP 10 mm Hg Right ventricle RV pressure, S 19 mm Hg <30 Pulmonic valve Peak velocity, S 152 cm/s LEGEND: Mean values are shown as u=mean value. Asterisk (*) gardner values outside specified normal range. Prepared and signed by Tristan Fry [id number]
--- NOTE | 2017-01-02 19:14 | MA ---
cc: FLACO HAHN DATE: 01/02/2017. PROCEDURE PERFORMED: 1. Left heart catheterization. 2. Selective right and left coronary angiography. 3. Left ventriculogram. 4. Successful PCI / KHUSHI to the mid left anterior descending. INDICATIONS FOR THE PROCEDURE: Angina / positive stress test. DESCRIPTION OF THE PROCEDURE IN DETAIL: Consent signed. The patient was brought into the cardiac trestle mainternance laborer in a fasting state. The right groin was prepped and was prepped and draped in a sterile fashion. Using 1% lidocaine for local anesthesia and a micropuncture kit, a 6- Croatian sheath was inserted into the right common femoral artery. A right common femoral artery angiography was performed to confirm position of the sheath. Then selective right and left coronary angiography was performed with a JR-4 and a JL-4 diagnostic catheters. Angiography was taken in multiple views. The JR-4 was introduced into the left ventricle over a wire. This was followed by pressure recordings, left ventriculogram and pullback. We identified a significant 95% lesion in the mid segment of the left anterior descending that explained the positive stress test and the patient's symptoms that we prepared to fix percutaneously. IV heparin was given for anticoagulation. An EBU 3.5 guide was used to engage the left main then the LAD vessel was wired with a run- through wire which was anchored distally. The lesion was predilated with a 2.5 x 12 balloon followed by insertion and deployment of 2.5 x 26 drug-eluting stent. The stent was postdilated to high atmospheres with a stent balloon. Final angiographic views revealed good stent apposition and expansion with ANDREZ III flow. The patient tolerated the procedure well without complications. Estimated blood loss less than 50 mL. Total contrast 100 mL. The right groin access site was closed with a Perclose device. The patient was loaded with Plavix after the procedure. RESULTS: LEFT VENTRICLE: The left ventricular pressure was 121/8 with an left ventricular end diastolic pressure of 11. The aortic pressure was 103/53 with a mean of 73. The left ventriculogram revealed a symmetrically nora ventricle with an estimated ejection fraction of 50%. There was no gradient upon pullback from the left ventricle to the aorta. ANGIOGRAPHY: 1. The right coronary artery is a dominant vessel. It has minimal luminal irregularities throughout. It is tortuous. It has a long 40% lesion in its mid segment. The posterior descending artery is patent with ANDREZ III flow and nonobstructive coronary artery disease. It is developing small collaterals to the left system possibly the left anterior descending. 2. The left main is patent with nonobstructive coronary artery disease and ANDREZ III flow. 3. The left anterior descending has a proximal stent, which is patent. After the stent, there is a 95% focal lesion. There is ANDREZ II flow of the left anterior descending. The first and second diagonals are patent. 4. The left circumflex artery is patent with nonobstructive coronary artery disease. There is a high takeoff obtuse marginal which is also patent with a nonobstructive coronary artery disease. CONCLUSIONS: 1. Successful percutaneous coronary intervention / drug-eluting stent to the mid left anterior descending. RECOMMENDATIONS: The patient will go to the [facility] for post cath care. He will be getting IV hydration post cath for the next four hours. He will continue dual antiplatelet agents with aspirin and Plavix as well as aggressive medical management for secondary prevention of coronary artery disease with the beta-blockers, statins , BRUCE inhibitors. After bed rest, encourage ambulation. MD MARYANN Dolan/GIOVANA /4:41 PM /7:04 PM [id number]
[2017-01-02] MEDS: ATORVASTATIN 20 MG TAB PO SCH (20:42)
[2017-01-03] VITALS (12 sets, daily range): BP systolic 124–132; BP diastolic 67–77; PULSE 62–78; RESP 18; TEMP 97.2–97.4; O2SAT 99
--- NOTE | 2017-01-03 07:53 | EKG ---
Date Performed: 01/02/2017 Time Performed: 01:28:58 PTAGE: 76 years EKG: Sinus rhythm WITH FIRST DEGREE AV BLOCK ABNORMAL ECG Compared to PREVIOUS TRACING , sinus rate is slightly faster and first degree AV block is new. PREVIO US TRACIN01/01/2017 17.15 DOCTOR: Baljit Almonte Interpretating Date/Time 01/03/2017 07:52:44
--- NOTE | 2017-01-03 07:53 | EKG ---
Date Performed: 01/01/2017 Time Performed: 17:15:22 PTAGE: 76 years EKG: SINUS BRADYCARDIA BORDERLINE ECG Compared to prior tracing no significant change PREVIOUS TRACING : 01/01/2017 11.01 DOCTOR: Baljit Almonte Interpretating Date/Time 01/03/2017 07:52:18
--- NOTE | 2017-01-03 08:03 | PD.CARD.PN ---
Subjective Subjective Remarks no complaints chest pain free ambulating without difficulty Objective Medications Current Medications Medications (Trade) Dose Ordered Sig/Sandra Route Start Time Stop Time Status Last Admin (NS Flush) 2 ml UNSCH PRN IVF 01/01/17 11:15 01/01/17 11:30 (Zofran Inj) 4 mg Q6H PRN IVP 01/01/17 12:30 (Colace) 100 mg Q12H PRN PO 01/01/17 12:30 (Tylenol) 650 mg Q6H PRN PO 01/01/17 12:30 (Morphine Inj) 2 mg Q3H PRN IV 01/01/17 12:45 (Narcan Inj) 0.4 mg UNSCH PRN IV 01/01/17 12:45 (Protonix) 40 mg BID PO 01/01/17 21:00 01/02/17 20:42 (Ultram) 50 mg Q4H PRN PO 01/01/17 17:45 01/02/17 03:58 (Norvasc) 10 mg DAILY PO 01/02/17 09:00 01/02/17 10:20 (Lipitor) 20 mg HS PO 01/01/17 21:00 01/02/17 20:42 (Plavix) 75 mg DAILY PO 01/02/17 09:00 01/02/17 10:20 (Zetia) 10 mg DAILY PO 01/02/17 09:00 01/02/17 10:20 (Ismo) 60 mg DAILY PO 01/02/17 09:00 01/02/17 10:19 (Aspirin Chew) 81 mg DAILY CHEW 01/02/17 09:00 01/02/17 10:19 Vital Signs / I&O Vital Signs Date Time Temp Pulse Resp B/P Pulse Ox O2 Delivery O2 Flow Rate FiO2 01/03/17 06:02 62 01/03/17 05:54 69 01/03/17 04:17 76 01/03/17 03:58 97.2 72 18 124/77 99 01/03/17 03:58 64 01/03/17 02:00 64 01/03/17 01:00 68 01/03/17 00:00 72 01/02/17 23:00 68 01/02/17 23:00 98.7 99 18 123/66 99 01/02/17 22:00 65 01/02/17 19:00 97.2 98 18 123/66 98 01/02/17 16:53 99 Room Air 01/02/17 13:27 68 01/02/17 08:08 97.8 86 20 132/62 96 I/O 01/02/17 01/02/17 01/02/17 01/03/17 01/03/17 01/03/17 07:00 15:00 23:00 07:00 15:00 23:00 Intake Total 1010 ml Output Total 700 ml 800 ml Balance -700 ml 210 ml Intake Oral 410 ml IV Total 600 ml Output Urine Total 700 ml 800 ml # Bowel Movements 0 Physical Exam GENERAL: Well-nourished, well-developed patient. SKIN: Warm and dry. HEAD: Normocephalic. EYES: No scleral icterus. No injection or drainage. NECK: Supple, trachea midline. No JVD or lymphadenopathy. CARDIOVASCULAR: Regular rate and rhythm without murmurs, gallops, or rubs. RESPIRATORY: Breath sounds equal bilaterally. No accessory muscle use. GASTROINTESTINAL: Abdomen soft, non-tender, nondistended. EXTREMITIES: No cyanosis, or edema. NEUROLOGICAL: Awake, alert, and oriented x 3. Non-focal. Laboratory Imaging Last Impressions Myocardial Perfusion Scan Nuc Med 01/02/17 0000 Signed Impressions: Service Date/Time: December 11:03 - CONCLUSION: Moderate size moderate severity reversible apical perfusion abnormality. RISK CATEGORY: Intermediate (1-3%% Annual Mortality Rate) Benjamin Martinez MD Chest X-Ray 01/01/17 1103 Signed Impressions: Service Date/Time: Sunday, January 01, 2017 11:00 - CONCLUSION: No acute disease. Efraín Metz MD Assessment and Plan Problem List: (1) Chest pain Assessment and Plan: S/P PCI/KHUSHI to Mid LAD Doing well, no CV complaints. Cont DAPT with ASA and Plavix Aggressive medical therapy for CAD Stable from CV standpoint to d/c home today Follow up with me in 1 week. (2) Hyperlipidemia (3) Hypertension (4) Coronary artery disease (5) Peripheral vascular disease Ed Monique MD Jan 03, 2017 08:03
--- NOTE | 2017-01-03 08:58 | HHI.PR ---
Subjective Remarks This is a pleasant 76 y/o male with CAD status post PCI and stent placement, PAD , Hypertension, Hyperlipidemia, chronic back pain, gout, who came to ER with Chest pain, had Right leg thrombolysis and Angioplasty 2010, Spinal surgery, has DM II, had Positive Stress test and recommended for PCI performed by customer care specialist Doctor Ed Monique status post PCI and KHUSHI to Mid left anterior descending. recommended continue Aspirin and Plavix, needs Beta Edith and BRUCE inhibitors. Statins. Seen in his bedroom in the presence of nurse Miss Shah no new issues, performed new laboratory to re evaluate his renal function improved. will discharge home. Objective Vital Signs Date Time Temp Pulse Resp B/P Pulse Ox O2 Delivery O2 Flow Rate FiO2 01/03/17 06:02 62 01/03/17 05:54 69 01/03/17 04:17 76 01/03/17 03:58 97.2 72 18 124/77 99 01/03/17 03:58 64 01/03/17 02:00 64 01/03/17 01:00 68 01/03/17 00:00 72 01/02/17 23:00 68 01/02/17 23:00 98.7 99 18 123/66 99 01/02/17 22:00 65 01/02/17 19:00 97.2 98 18 123/66 98 01/02/17 16:53 99 Room Air 01/02/17 13:27 68 I/O 01/02/17 01/02/17 01/02/17 01/03/17 01/03/17 01/03/17 07:00 15:00 23:00 07:00 15:00 23:00 Intake Total 1010 ml Output Total 700 ml 800 ml Balance -700 ml 210 ml Intake Oral 410 ml IV Total 600 ml Output Urine Total 700 ml 800 ml # Bowel Movements 0 Result Diagram: 01/02/17 0635 01/02/17 0635 Imaging Last Impressions Myocardial Perfusion Scan Nuc Med 01/02/17 0000 Signed Impressions: Service Date/Time: December 11:03 - CONCLUSION: Moderate size moderate severity reversible apical perfusion abnormality. RISK CATEGORY: Intermediate (1-3%% Annual Mortality Rate) Benjamin Martinez MD Chest X-Ray 01/01/17 1103 Signed Impressions: Service Date/Time: Sunday, January 01, 2017 11:00 - CONCLUSION: No acute disease. Efraín Metz MD Procedures Status Post PCI and Stent placement Other Results Laboratory Tests Test 01/01/17 01/01/17 01/01/17 01/02/17 11:10 18:04 22:48 06:35 Differential Total Cells 100 Counted Neutrophils % (Manual) 42 % Band Neutrophils % 4 % Lymphocytes % 21 % Monocytes % 5 % Eosinophils % 26 % Neutrophils # (Manual) 5.1 TH/MM3 Myelocytes 2 % Platelet Estimate NORMAL Platelet Morphology Comment ENLARGED Prothrombin Time 10.4 SEC Prothromb Time International 0.9 RATIO Ratio Activated Partial 23.6 SEC Thromboplast Time Magnesium Level 2.2 MG/DL Total Bilirubin 0.5 MG/DL Aspartate Amino Transf 8 U/L (AST/SGOT) Alanine Aminotransferase 17 U/L (ALT/SGPT) Alkaline Phosphatase 92 U/L Total Protein 7.4 GM/DL Albumin 4.2 GM/DL D-Dimer Quantitative (PE/DVT) 0.71 MG/L FEU Hemoglobin A1c 5.7 % Total Creatine Kinase 47 U/L Troponin I LESS THAN 0.02 NG/ML White Blood Count 7.0 TH/MM3 Red Blood Count 3.91 MIL/MM3 Hemoglobin 12.3 GM/DL Hematocrit 36.1 % Mean Corpuscular Volume 92.4 FL Mean Corpuscular Hemoglobin 31.6 PG Mean Corpuscular Hemoglobin 34.2 % Concent Red Cell Distribution Width 14.9 % Platelet Count 145 TH/MM3 Mean Platelet Volume 9.0 FL Neutrophils (%) (Auto) 60.2 % Lymphocytes (%) (Auto) 15.1 % Monocytes (%) (Auto) 8.6 % Eosinophils (%) (Auto) 15.7 % Basophils (%) (Auto) 0.4 % Neutrophils # (Auto) 4.2 TH/MM3 Lymphocytes # (Auto) 1.1 TH/MM3 Monocytes # (Auto) 0.6 TH/MM3 Eosinophils # (Auto) 1.1 TH/MM3 Basophils # (Auto) 0.0 TH/MM3 CBC Comment DIFF FINAL Differential Comment Sodium Level 143 MEQ/L Potassium Level 4.6 MEQ/L Chloride Level 115 MEQ/L Carbon Dioxide Level 21.9 MEQ/L Anion Gap 6 MEQ/L Blood Urea Nitrogen 19 MG/DL Creatinine 1.35 MG/DL Estimat Glomerular Filtration 51 ML/MIN Rate Random Glucose 101 MG/DL Calcium Level 8.5 MG/DL Triglycerides Level 100 MG/DL Cholesterol Level 100 MG/DL LDL Cholesterol 29 MG/DL HDL Cholesterol 51.0 MG/DL Cholesterol/HDL Ratio 1.96 RATIO Objective Remarks GENERAL: Well-nourished, well-developed pleasant elderly male patient in [facility]. SKIN: Warm and dry. No rash. HEAD: Normocephalic. Atraumatic. EYES: Pupils equal and round. No scleral icterus. No injection or drainage. ENT: No nasal bleeding or discharge. Mucous membranes pink and moist. NECK: Supple. Trachea midline. CARDIOVASCULAR: Regular rate and rhythm. S1, S2 noted. No murmur appreciated. RESPIRATORY: No accessory muscle use. Clear to auscultation. Breath sounds equal bilaterally. GASTROINTESTINAL: Abdomen soft, non-tender, nondistended. Normoactive bowel sounds x4. MUSCULOSKELETAL: No obvious deformities. Extremities without clubbing, cyanosis , or edema. NEUROLOGICAL: Awake and alert. No obvious cranial nerve deficits. Motor grossly within normal limits. 5/5 muscle strength in bilateral upper and lower extremities. Normal speech. PSYCHIATRIC: Appropriate mood and affect; insight and judgment normal. Medications and IVs Current Medications Medications (Trade) Dose Ordered Sig/Sandra Route Start Time Stop Time Status Last Admin (NS Flush) 2 ml UNSCH PRN IVF 01/01/17 11:15 01/01/17 11:30 (Zofran Inj) 4 mg Q6H PRN IVP 01/01/17 12:30 (Colace) 100 mg Q12H PRN PO 01/01/17 12:30 (Tylenol) 650 mg Q6H PRN PO 01/01/17 12:30 (Morphine Inj) 2 mg Q3H PRN IV 01/01/17 12:45 (Narcan Inj) 0.4 mg UNSCH PRN IV 01/01/17 12:45 (Protonix) 40 mg BID PO 01/01/17 21:00 01/02/17 20:42 (Ultram) 50 mg Q4H PRN PO 01/01/17 17:45 01/02/17 03:58 (Norvasc) 10 mg DAILY PO 01/02/17 09:00 01/02/17 10:20 (Lipitor) 20 mg HS PO 01/01/17 21:00 01/02/17 20:42 (Plavix) 75 mg DAILY PO 01/02/17 09:00 01/02/17 10:20 (Zetia) 10 mg DAILY PO 01/02/17 09:00 01/02/17 10:20 (Ismo) 60 mg DAILY PO 01/02/17 09:00 01/02/17 10:19 (Aspirin Chew) 81 mg DAILY CHEW 01/02/17 09:00 01/02/17 10:19 A/P Assessment and Plan 1. Atypical chest status post positive Stress test, had Cardiac Catheterization status post PCI and KHUSHI to Mid LAD, will need to continue Aspirin and Plavix and follow with Doctor Ed Monique in one week, recommended to continue Beta Edith and BRUCE inhibitor at this time improving his renal function will start Low dose of BRUCE inhibitor and follow by his Primary Care Physician and Cardiology to re evaluate the heart rate and may start Beta Edith not started on this admission due to Bradycardia 2. Acute on chronic back pain, CT 12/24/15 showed linear nondisplaced fracture involving posterior spinous process of T9 with callus formation, likely subacute to chronic fracture. 3. Hypertension controlled. 4. Hyperlipidemia to continue Statins 5. CYNDY probable secondary to overuse of NSAIDS, Improved with IV fluids. 6. Peripheral Artery Disease with status post Thrombolysis/Angioplasty continue Plavix. DVT Prophylaxis: teds/SCDs Discharge Planning Discharge Home today. August Nathan MD Jan 03, 2017 08:58
[2017-01-03] MEDS: CLOPIDOGREL 75 MG TAB PO SCH (09:07)
[2017-01-03] MEDS: EZETIMIBE 10 MG TAB PO SCH (09:07)
[2017-01-03] MEDS: ISOSORBIDE MONONITRATE 20 MG TAB PO SCH (09:07)
[2017-01-03] MEDS: SODIUM CHLORIDE 0.9% FLUSH 10 ML FLUSH IVF PRN (09:07)
[2017-01-03] MEDS: ASPIRIN 81 MG CHEW TAB CHEW SCH (09:07)
[2017-01-03] MEDS: PANTOPRAZOLE SOD 40 MG DELAYED RELEASE TAB PO SCH (09:08)
[2017-01-03] MEDS ORDERED: Aspirin Chew CHEW (09:11)
[2017-01-03] MEDS ORDERED: PANT40TA3 PO (09:11)
[2017-01-03 11:05] LABS: AUTOMATED NEUTROPHIL # 4.5 TH/MM3 (1.8-7.7); BASOPHIL % 0.3 % (0.0-2.0); EOSINOPHIL # 1.1 TH/MM3 (0-0.4); HEMATOCRIT 35.5 % (39.0-51.0); HEMO FLAGS DIFF FINAL; LYMPH % 10.8 % (9.0-44.0); LYMPHOCYTE # 0.7 TH/MM3 (1.0-4.8); MEAN CELL VOLUME 92.8 FL (80.0-100.0); MEAN CORPUSCULAR HEMOGLOBIN 31.1 PG (27.0-34.0); MEAN CORPUSCULAR HGB CONC 33.5 % (32.0-36.0); MONO % 7.1 % (0.0-8.0); NEUT % 65.8 % (16.0-70.0); PLATELET COUNT 146 TH/MM3 (150-450); RED BLOOD COUNT 3.82 MIL/MM3 (4.50-5.90); RED CELL DISTRIBUTION WIDTH 14.9 % (11.6-17.2); WHITE BLOOD COUNT 6.9 TH/MM3 (4.0-11.0)
[2017-01-03 11:18] LABS: POTASSIUM 4.2 MEQ/L (3.5-5.1)
--- NOTE | 2017-01-03 12:25 | HHI.DS ---
Discharge Summary Admission Date Jan 01, 2017 at 12:20 Discharge Date: Jan 03, 2017 Admitting Diagnosis intermittent chest pains/possible unstable angina (1) Chest pain ICD Code: R07.9 (2) Coronary artery disease ICD Code: I25.10 Diagnosis: Principal (3) Hypertension ICD Code: I10 Diagnosis: Secondary (4) Hyperlipidemia ICD Code: E78.5 Diagnosis: Secondary Procedures Cardiac Catheterization with KHUSHI to Mid LAD Brief History - From Admission 76-year-old male with history of CAD s/p cardiac stent, PAD, hypertension, hyperlipidemia, chronic back pain, gout, presents with over a month history of intermittent chest pains. The pain is located substernally and at the left anterior chest with radiation down the left arm, described as intermittent sharp 5/10 pains, lasts 15minutes, associated with some shortness of breath but no nausea/vomiting/diaphoresis. He sometimes will take Nitroglycerin which does help relieve the pain and he has been taking Nitro more frequently, up to 8 nitro tabs a day. He reports the pain mostly comes on at rest while watching television, but he does not get pain with exertion. He states he mowed the lawn last week and did not experience any chest pain. He does also report back pain located at the mid-thoracic region just below the shoulder blades. He states over a year ago he was bent over to picker tender helper a TV stand, then upon standing upright, he experienced the pain. He also denies any epigastric pain or heartburn however takes multiple NSAIDs for his back pain, which includes ibuprofen 3-4x per day, Mobic, and additional aspirin. He does not notice the pain is worse after meals. He does have the pain when he lies flat. Denies any leg swelling or weight gain. He also reports chronic cough productive of clear- white phlegm which also exacerbates the chest pain. The patient does not have a local tapper balance wheel screw hole but does follow with local PCP. He has no other medical complaints at this time. CBC/BMP: 01/03/17 1041 01/03/17 1041 Significant Findings Laboratory Tests Test 4/12/17 01/01/17 01/01/17 01/02/17 11:10 18:04 22:48 06:35 Red Blood Count 4.22 MIL/MM3 3.91 MIL/MM3 (4.50-5.90) (4.50-5.90) Eosinophils (%) (Auto) 17.3 % 15.7 % (0.0-4.0) (0.0-4.0) Eosinophils # (Auto) 1.8 TH/MM3 1.1 TH/MM3 (0-0.4) (0-0.4) Eosinophils % 26 % (0-4) Myelocytes 2 % (0-0) Platelet Morphology Comment ENLARGED (NORMAL) Activated Partial 23.6 SEC Thromboplast Time (24.3-30.1) Chloride Level 114 MEQ/L 115 MEQ/L (98-107) (98-107) Blood Urea Nitrogen 21 MG/DL (7-18) 19 MG/DL (7-18) Creatinine 1.59 MG/DL 1.35 MG/DL (0.60-1.30) (0.60-1.30) Estimat Glomerular Filtration 42 ML/MIN (>89) 51 ML/MIN (>89) Rate Random Glucose 115 MG/DL (74-106) Aspartate Amino Transf 8 U/L (15-37) (AST/SGOT) Troponin I LESS THAN 0.02 LESS THAN 0.02 LESS THAN 0.02 NG/ML NG/ML NG/ML (0.02-0.05) (0.02-0.05) (0.02-0.05) D-Dimer Quantitative (PE/DVT) 0.71 MG/L FEU (0.00-0.50) Hemoglobin 12.3 GM/DL (13.0-17.0) Hematocrit 36.1 % (39.0-51.0) Platelet Count 145 TH/MM3 (150-450) Monocytes (%) (Auto) 8.6 % (0.0-8.0) Cholesterol Level 100 MG/DL (120-200) Test 01/03/17 10:41 Red Blood Count 3.82 MIL/MM3 (4.50-5.90) Hemoglobin 11.9 GM/DL (13.0-17.0) Hematocrit 35.5 % (39.0-51.0) Platelet Count 146 TH/MM3 (150-450) Eosinophils (%) (Auto) 16.0 % (0.0-4.0) Lymphocytes # (Auto) 0.7 TH/MM3 (1.0-4.8) Eosinophils # (Auto) 1.1 TH/MM3 (0-0.4) Chloride Level 112 MEQ/L (98-107) Estimat Glomerular Filtration 55 ML/MIN (>89) Rate Random Glucose 143 MG/DL (74-106) Imaging Last Impressions Myocardial Perfusion Scan Nuc Med 01/02/17 0000 Signed Impressions: Service Date/Time: December 11:03 - CONCLUSION: Moderate size moderate severity reversible apical perfusion abnormality. RISK CATEGORY: Intermediate (1-3%% Annual Mortality Rate) Benjamin Martinez MD Chest X-Ray 01/01/17 1103 Signed Impressions: Service Date/Time: Sunday, January 01, 2017 11:00 - CONCLUSION: No acute disease. Efraín Metz MD PE at Discharge GENERAL: Well-nourished, well-developed pleasant elderly male patient in [facility]. SKIN: Warm and dry. No rash. HEAD: Normocephalic. Atraumatic. EYES: Pupils equal and round. No scleral icterus. No injection or drainage. ENT: No nasal bleeding or discharge. Mucous membranes pink and moist. NECK: Supple. Trachea midline. CARDIOVASCULAR: Regular rate and rhythm. S1, S2 noted. No murmur appreciated. RESPIRATORY: No accessory muscle use. Clear to auscultation. Breath sounds equal bilaterally. GASTROINTESTINAL: Abdomen soft, non-tender, nondistended. Normoactive bowel sounds x4. MUSCULOSKELETAL: No obvious deformities. Extremities without clubbing, cyanosis , or edema. Right Inguinal area no Hemorrhage, ecchymosis or bruit NEUROLOGICAL: Awake and alert. No obvious cranial nerve deficits. PSYCHIATRIC: Appropriate mood and affect; insight and judgment normal. Hospital Course This is a pleasant 76 y/o male with CAD status post PCI and stent placement, PAD , Hypertension, Hyperlipidemia, chronic back pain, gout, who came to ER with Chest pain, had Right leg thrombolysis and Angioplasty 2010, Spinal surgery, has DM II, had Positive Stress test and recommended for PCI performed by job development specialist Doctor Ed Monique status post PCI and KHUSHI to Mid left anterior descending. recommended continue Aspirin and Plavix, needs Beta Edith and BRUCE inhibitors. Statins. Seen in his bedroom in the presence of nurse Miss Shah no new issues, performed new laboratory to re evaluate his renal function improved. will discharge home. Assessment and Plan 1. Atypical chest status post positive Stress test, had Cardiac Catheterization status post PCI and KHUSHI to Mid LAD, will need to continue Aspirin and Plavix and follow with Doctor Ed Monique in one week, recommended to continue Beta Edith and BRUCE inhibitor at this time improving his renal function will start Low dose of BRUCE inhibitor and follow by his Primary Care Physician and Cardiology to re evaluate the heart rate and may start Beta Edith not started on this admission due to Bradycardia 2. Acute on chronic back pain, CT 12/24/15 showed linear nondisplaced fracture involving posterior spinous process of T9 with callus formation, likely subacute to chronic fracture. 3. Hypertension controlled. 4. Hyperlipidemia to continue Statins 5. CYNDY probable secondary to overuse of NSAIDS, Improved with IV fluids. 6. Peripheral Artery Disease with status post Thrombolysis/Angioplasty continue Plavix. DVT Prophylaxis: teds/SCDs Discharge Planning Discharge Home today. Pt Condition on Discharge: Good Discharge Disposition: Discharge Home Discharge Time: <= 30 minutes Discharge Instructions DIET: Follow Instructions for: Heart Healthy Diet Activities you can perform: Regular-No Restrictions August Nathan MD Jan 03, 2017 12:25
[2017-01-03] MEDS ORDERED: LISI2.5T3 PO (12:31)
== END 2017-01-03 13:19 | disposition home or self-care (01) ==
LOC: NEPE 10:47 → NEDA 12:20 → NEPGCP 14:19 → HCIS 01-02 16:38
PROVIDERS: ADMIT Internal Medicine; ATTEND Internal Medicine
DX: I25.119 Atherosclerotic heart disease of native coronary artery with unspecified angina pectoris (principal); E78.5 Hyperlipidemia, unspecified; M54.9 Dorsalgia, unspecified; G89.29 Other chronic pain; N17.9 Acute kidney failure, unspecified; I13.0 Hypertensive heart and chronic kidney disease with heart failure and stage 1 through stage 4 chronic kidney disease, or unspecified chronic kidney disease; N18.9 Chronic kidney disease, unspecified; I50.9 Heart failure, unspecified; M10.9 Gout, unspecified; I25.2 Old myocardial infarction; Z87.891 Personal history of nicotine dependence; Z95.5 Presence of coronary angioplasty implant and graft; Z86.718 Personal history of other venous thrombosis and embolism; Z95.820 Peripheral vascular angioplasty status with implants and grafts; Z95.1 Presence of aortocoronary bypass graft; Z79.82 Long term (current) use of aspirin; Z79.02 Long term (current) use of antithrombotics/antiplatelets; Z88.8 Allergy status to other drugs, medicaments and biological substances; Z86.73 Personal history of transient ischemic attack (TIA), and cerebral infarction without residual deficits; Z79.899 Other long term (current) drug therapy
CPT/HCPCS: 71010; 78452; 80048; 80053; 80061; 82550; 83036; 83735; 84484; 85002; 85007; 85025; 85027; 85379; 85610; 85730; 92928; 93005; 93017; 93306; 93454; 93458; 99285; A9502; C1725; C1760; C1769; C1874; C1887; C1893; G0269; G0378; J0280; J1644; J2250; J2785; J3010; J7030; Q9967